=== PATIENT | female | born 1960 | race Caucasian/White ===

== ENCOUNTER 2024-06-25 05:07 | Day surgery (SDC) | payer BC ==
[2024-06-24 11:18] VITALS: BMI 30.2
[2024-06-25] MEDS ORDERED: MIDAZOLAM HCL 2 MG/2 ML SINGLE DOSE VIAL ONE (12:06)
[2024-06-25] MEDS ORDERED: PROPOFOL 40 ML ONE (12:06)
[2024-06-25] MEDS ORDERED: SUCCINYLCHOLINE CHLORIDE 200 MG/10 ML SYRINGE ONE (12:10)
[2024-06-25] MEDS ORDERED: MINERAL OIL/PETROLATUM,WHITE 3.5 GM TUBE ONE (12:14)
[2024-06-25] MEDS ORDERED: oxyCODONE HCL 5 MG TABLET PO PRN ×2 (12:48)
[2024-06-25] MEDS ORDERED: LACTATED RINGERS SOLUTION 1,000 ML IV SCH (13:00)
[2024-06-25 14:32] VITALS: BP 115/68; PULSE 69; RESP 18; TEMP 97.3
== END 2024-06-25 15:24 | disposition home or self-care (01) ==
LOC: JASU-SURG 05:07
PROVIDERS: ATTEND Obstetrics & Gynecology
PROC: 0UDB8ZZ Extraction of Endometrium, Via Natural or Artificial Opening Endoscopic (ICD-10-PCS; principal; 2024-06-25 12:00)
DX: N95.0 Postmenopausal bleeding (principal); N84.0 Polyp of corpus uteri
CPT/HCPCS: 94760